=== PATIENT | male | born 1945 | race Hispanic/Latino ===

== ENCOUNTER 2024-06-24 11:49 | Emergency (ER) | payer MEDICARE ==
[~2024-06-24] VITALS: Ht 162.6 cm; Wt 61.2 kg
[~2024-06-24 11:49] MED LIST: BENICAR20 MG PO; CARAFATE1 GM PO; CIPRO500 MG PO; COLCHICINE0.6 M1 PO; NORVASC5 MG PO; OLMESARTAN-HCT1 EACH PO; PANTOPRAZOLE SO40 MG PO
[2024-06-24 12:13] VITALS: TEMP 98
[2024-06-24 12:20] LABS: BASOPHILS % 0.2 % (0.0-1.0); EOSINOPHILS # (AUTO) 0.5 (0.0-0.4); EOSINOPHILS % 5.6 % (0.0-6.0); HEMATOCRIT 38.7 % (38.2-49.6); HEMOGLOBIN 13.1 g/dL (14.0-18.0); LYMPHOCYTES # (AUTO) 1.2 (1.0-3.2); LYMPHOCYTES % 15.2 % (18.0-39.1); MEAN CORPUSCULAR HEMOGLOBIN 29.1 pg (28-32); MEAN CORPUSCULAR HGB CONC 33.9 g/dL (31-35); MONOCYTES # (AUTO) 0.7 (0.2-0.8); MONOCYTES % 8.9 % (4.4-11.3); NEUTROPHILS # (AUTO) 5.7 (2.1-6.9); NEUTROPHILS % 69.9 % (38.7-80.0); PLATELET COUNT 235 x10e3/uL (140-360); WHITE BLOOD COUNT 8.18 x10e3/uL (4.8-10.8)
[2024-06-24 12:44] LABS: ALBUMIN/GLOBULIN RATIO 1.5 (0.8-2.0); ANION GAP 15.9 mmol/L (8-16); BILIRUBIN,TOTAL 0.6 mg/dL (0.2-1.2); CALCIUM 8.6 mg/dL (8.4-10.2); CREATININE, SERUM 1.32 mg/dL (0.72-1.25); POTASSIUM 3.9 mmol/L (3.5-5.1); TOTAL PROTEIN 6.7 g/dL (6.5-8.1)
[2024-06-24 12:50] LABS: INFLUENZA A AG NEGATIVE (NEGATIVE); TROPONIN I 0.044 ng/mL (0-0.300)
[2024-06-24 12:51] LABS: CORONAVIRUS COVID-19 AG NEGATIVE (NEGATIVE); INFLUENZA B AG NEGATIVE (NEGATIVE)
[2024-06-24 13:40] VITALS: PULSE 55; RESP 16
[2024-06-24 13:47] VITALS: BP 134/46; PULSE 55; RESP 18; TEMP 97.4; O2SAT 100
== END 2024-06-24 13:49 | disposition home or self-care (01) ==
LOC: ER 11:56
DX: R06.00 Dyspnea, unspecified (principal); I10 Essential (primary) hypertension; E78.5 Hyperlipidemia, unspecified; K21.9 Gastro-esophageal reflux disease without esophagitis; Z11.52 Encounter for screening for COVID-19
CPT/HCPCS: 36415; 71045; 80053; 83880; 84484; 85025; 93005; 99284